=== PATIENT | female | born 1970 | race Caucasian/White ===

== ENCOUNTER 2018-02-24 18:19 | Emergency (ER) | payer SELFPAY ==
[2018-02-24 18:45] VITALS: BP 116/76
--- NOTE | 2018-02-24 20:17 | UC ---
Allegra Mendiola Gabriel, scribed for Tasha Hernandez MD on 02/24/18 at 2003 . General HPI - HPI Summary HPI Summary: This patient is a 47 year old F presenting to [facility] [place] accompanied by her roommate with a chief complaint of left ear pain since 02-20-18. The patient rates the pain 2/10 in severity. Symptoms aggravated by talking. Patient reports vomiting , congestion, fever, crusty formation in the ear, and cough. Patient denies sore throat, nausea, ROY, and SOB. Pt had a cold last week. Has vomited episodically, mostly as a result of swallowing drainage or because bouts of coughing lead to vomiting. - History of Current Complaint Chief Complaint: UCEar Stated Complaint: EAR ACHE Time Seen by Provider: 02/24/18 19:54 Hx Obtained From: Patient Hx Last Menstrual Period: 02/05/2017 Onset/Duration: Still Present Timing: Constant Onset Severity: Mild Current Severity: Mild Pain Intensity: 2 Pain Location at: ear Associated Signs & Symptoms: Positive: Other - vomiting, congestion, fever, crusty formation in the ear, cough, - Allergy/Home Medications Allergies/Adverse Reactions: Allergies Allergy/AdvReac Type Severity Reaction Status Date / Time codeine Allergy Vomiting Verified 02/24/18 18:45 Home Medications: Home Medications Pseudoephedrine HCl [Nasal Decongestant] 02/24/18 [History] PMH/Surg Hx/FS Hx/Imm Hx Previously Healthy: Yes - overweight Other History Of: Negative For: Anticoagulant Therapy - Surgical History Surgical History: None - Family History Known Family History: Positive: Unknown - paternal history unknown. Mother is living and healthy. 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 Lives: Dormitory/Roommates Alcohol Use: None Substance Use Type: None Smoking Status (MU): Never Smoked Tobacco Review of Systems Constitutional: Fever Skin: Negative Eyes: Negative ENT: Ear Ache, Sinus Congestion, Other - crusty formation in the left ear Respiratory: Cough Cardiovascular: Negative Gastrointestinal: Vomiting Genitourinary: Negative Motor: Negative Neurovascular: Negative Musculoskeletal: Negative Neurological: Negative Psychological: Negative Is Patient Immunocompromised?: No All Other Systems Reviewed And Are Negative: Yes Physical Exam Triage Information Reviewed: Yes Appearance: Ill-Appearing - looks unwell, harsh cough, some sweating. Vital Signs: Initial Vital Signs Temp 100.1 F 02/24/18 18:39 Pulse 105 02/24/18 18:39 Resp 18 02/24/18 18:39 BP 116/76 02/24/18 18:39 Pulse Ox 97 02/24/18 18:39 Eyes: Positive: Conjunctiva Clear ENT: Positive: Pharyngeal erythema, TM bulging - on left, red, dull with decreased light reflex. Some fluid in left ear canal, but cannot see a perforation. Neck: Positive: Supple, Nontender, No Lymphadenopathy Respiratory: Positive: Lungs clear, Normal breath sounds Musculoskeletal Exam: Normal Neurological: Positive: Alert, Muscle Tone Normal Psychological Exam: Normal Skin Exam: Normal Course/Dx - Course Course Of Treatment: Pt medications reviewed this visit. Allergies noted. Amoxicillin for left otitis media. Off work tomorrow. - Differential Dx - Multi-Symptom Provider Diagnoses: left otitis media. Discharge - Sign-Out/Discharge Documenting (check all that apply): Discharge - Discharge Plan Condition: Stable Disposition: HOME Prescriptions: Amoxicillin PO (*) [Amoxicillin 875 MG (*)] 875 mg PO BID #20 tab Patient Education Materials: Ear Infection (ED) Forms: *Work Release Referrals: No Primary Care Phys,NOPCP [Primary Care Provider] - Additional Instructions: Begin amoxicillin for treatment of left otitis media. You can use ibuprofen or acetaminophen for control of pain. Rest at home tomorrow, ensure high intake of fluids. - Billing Disposition and Condition Condition: STABLE Disposition: HOME The documentation as recorded by the Allegra valentine Gabriel accurately reflects the service I personally performed and the decisions made by me, Tasha Hernandez MD.
== END 2018-02-24 20:29 | disposition home or self-care (01) ==
LOC: UCEAST 18:19
DX: H66.92 Otitis media, unspecified, left ear (principal); R11.10 Vomiting, unspecified; R50.9 Fever, unspecified; R05 Cough; Z88.5 Allergy status to narcotic agent
CPT/HCPCS: 99202; G0463

== ENCOUNTER 2019-02-16 18:15 | Emergency (ER) | payer BC ==
[2019-02-16 18:44] VITALS: BP 126/85
--- NOTE | 2019-02-16 19:02 | UC ---
Respiratory Complaint HPI - HPI Summary HPI Summary: 48 y/o female presents to the urgent care c/o productive cough and chest congestion, fatigue for one week . Pt reports symptoms started as a common cold w/ nasal congestion and yellowish nasal discharge. She has taken OTC medication w/o any improvement. Cough is worse at night. Last night she had fever and chills and unable to sleep due to cough. Pt denies , SOB, wheezing, chest pain, abdominal pain, N/v/d. Pt w/ PMHX of asthma. - History of Current Complaint Chief Complaint: UCRespiratory Stated Complaint: CONGESTED Time Seen by Provider: 02/16/19 18:47 Hx Obtained From: Patient Hx Last Menstrual Period: 02/05/2017 ?: No Onset/Duration: Gradual Onset, Lasting Weeks - 1 week, Still Present, Worse Since - yesterday Timing: Intermittent Episodes Severity Initially: Mild Severity Currently: Moderate Pain Intensity: 3 Pain Scale Used: 0-10 Numeric Character: Cough: Productive, Sputum Description: - green Aggravating Factors: Recumbent Position Alleviating Factors: OTC Meds Associated Signs And Symptoms: Positive: Chills, URI, Nasal Congestion, Sinus Discomfort. Negative: Fever, Wheezing - Risk Factors Pulmonary Embolism Risk Factors: Negative Cardiac Risk Factors: Negative Pseudomonas Risk Factors: Negative Tuberculosis Risk Factors: Negative - Allergies/Home Medications Allergies/Adverse Reactions: Allergies Allergy/AdvReac Type Severity Reaction Status Date / Time codeine Allergy Vomiting Verified 02/16/19 18:45 Home Medications: Home Medications Dm/PE/Acetaminophen/Doxylamine [Vicks Dayquil/Nyquil Cold] 1 mis PO Q6H [History Confirmed 02/16/19] PMH/Surg Hx/FS Hx/Imm Hx Previously Healthy: Yes Respiratory History: Asthma Other History Of: Negative For: Anticoagulant Therapy - Surgical History Surgical History: Yes Surgery Procedure, Year, and Place: foot surgery, 2007 - Family History Known Family History: Negative: Seizure Disorder, Blood Disorder Family History: dyslipidemia - Social History Occupation: Employed Full-time Lives: With Family Alcohol Use: Rare Substance Use Type: None Smoking Status (MU): Never Smoked Tobacco Review of Systems All Other Systems Reviewed And Are Negative: Yes Constitutional: Positive: Chills, Fatigue Skin: Positive: Negative Eyes: Positive: Negative ENT: Positive: Nasal Discharge - yellowish, Sinus Congestion, Sinus Pain/ Tenderness Respiratory: Positive: Cough - productive w/ green sputum Cardiovascular: Positive: Negative Gastrointestinal: Positive: Negative Genitourinary: Positive: Negative Motor: Positive: Negative Neurovascular: Positive: Negative Musculoskeletal: Positive: Negative Neurological: Positive: Negative Psychological: Positive: Negative Is Patient Immunocompromised?: No Physical Exam - Summary Physical Exam Summary: Vital Signs Reviewed: Yes General: well developed, well nourished obese female sitting in the examining table w/o any apparent distress Eyes: Positive: Conjunctiva Clear - PERRLA, EOMI, fundi grossly normal ENT: Positive: Normal ENT inspection, Hearing grossly normal, Pharynx normal, Nasal congestion - edematous and erythematous nasal mucosa, Nasal drainage - yellowish drainage, TMs normal. Negative: Tonsillar swelling, Tonsillar exudate Neck: Positive: Supple, Nontender, No Lymphadenopathy Respiratory: no orthopnea or dyspnea. Able to speak in full sentences, no retractions or accessory muscle use, no tripod position, stridor, or head bobbing. Positive breath sounds bilaterally. Diffuse scattered rhonchi on b/L lungs, no wheezes, no crackles or rales. Cardiovascular: Positive: RRR, No Murmur, Pulses Normal, Brisk Capillary Refill Abdomen Description: Positive: Nontender, No Organomegaly, Soft. Negative: CVA Tenderness (R), CVA Tenderness (L) Bowel Sounds: Positive: Present Musculoskeletal Exam: Normal Musculoskeletal: Positive: Strength Intact, ROM Intact, No Edema Neurological Exam: Normal Psychological Exam: Normal Skin Exam: Normal Triage Information Reviewed: Yes Vital Signs: Initial Vital Signs Temp 98.9 F 02/16/19 18:38 Pulse 75 02/16/19 18:38 Resp 14 02/16/19 18:38 BP 126/85 02/16/19 18:38 Pulse Ox 98 02/16/19 18:38 Respiratory Course/Dx - Course Course Of Treatment: 48 y/o female presents to the urgent care c/o productive cough and chest congestion, fatigue for one week . Pt reports symptoms started as a common cold w/ nasal congestion nasal discharge. She has taken OTC medication w/o any improvement. Cough is worse at night. Last night she had chills and fever. Pt denies SOB, wheezing, chest pain, abdominal pain, N/v/d. Pt w/ Hx of Asthma. Hx obtained. Pt w/ diffuse scattered rhonchi on b/L lungs, no wheezes, no crackles or rales on examination. O2Sat:98%. Chest X-ray ordered to r/o pneumonia. Impression: Possible RT lower lobe pneumonia. Dr Bullock also agrees w/ Radiology reading. However Pt advised final radiology report will be done tomorrow morning. Pt will be tx for pneumonia Clinically. Pt Rx Doxyxycline PO , Albuterol inhlaer, and Tessalon tabs to alleviate symptoms. Plan of care was discussed with the patient.. All questions were answered at patient satisfaction. There were no further complaints or concerns. Pt understood and agreed w/ plan of care. Pt left the clinic hemodynamically stable, A&OX3 - Differential Dx/Diagnosis Differential Diagnosis/HQI/PQRI: Asthma, Bronchitis, Influenza, Laryngitis, Lower Resp Infection, Sinusitis, Other - pneumonia Provider Diagnosis: Community acquired pneumonia Discharge - Sign-Out/Discharge Documenting (check all that apply): Patient Departure - D/C home All imaging exams completed and their final reports reviewed: No - Discharge Plan Condition: Stable Disposition: HOME Prescriptions: Albuterol HFA INHALER* [Ventolin HFA Inhaler*] 1 - 2 puff INH Q6H PRN #1 mdi PRN Reason: Cough Benzonatate CAP* [Tessalon 100 MG CAP*] 100 mg PO TID PRN #21 cap PRN Reason: Cough DOXYcycline CAP(*) [DOXYcycline 100MG CAP(*)] 100 mg PO BID #20 cap Patient Education Materials: Community Acquired Pneumonia (ED) Forms: *Work Release Referrals: [facility] [place] [facility] REFERR[facility] [Outside] - 2 Days Additional Instructions: 1-Please take full course of antibiotic to avoid resistance. 2-Take Tessalon tabs PO and use the albuterol inhaler w/ the aerochamber to alleviate cough. Increase fluid intake, rest and eat well. 3- If symptoms do not improve or worsen or your develop SOB with fever and severe cough please go immediately to the ER further evaluation and treatment. 4-See your PCP in 2-3 days to check your symptoms are improving - Billing Disposition and Condition Condition: STABLE Disposition: Home
--- NOTE | 2019-02-17 08:38 | UC ---
- Progress Note Progress Note: chest xray report : IMPRESSION: No active cardiopulmonary disease is noted. Course/Dx - Diagnoses Provider Diagnoses: Community acquired pneumonia Discharge - Sign-Out/Discharge Documenting (check all that apply): Patient Departure All imaging exams completed and their final reports reviewed: Yes - Discharge Plan Condition: Stable Disposition: HOME Prescriptions: Albuterol HFA INHALER* [Ventolin HFA Inhaler*] 1 - 2 puff INH Q6H PRN #1 mdi PRN Reason: Cough Benzonatate CAP* [Tessalon 100 MG CAP*] 100 mg PO TID PRN #21 cap PRN Reason: Cough DOXYcycline CAP(*) [DOXYcycline 100MG CAP(*)] 100 mg PO BID #20 cap Patient Education Materials: Community Acquired Pneumonia (ED) Forms: *Work Release Referrals: [facility] [place] [facility] RE[facility]ERR[facility] [Outside] - 2 Days [facility], [MD - TESTING] - Additional Instructions: 1-Please take full course of antibiotic to avoid resistance. 2-Take Tessalon tabs PO and use the albuterol inhaler w/ the aerochamber to alleviate cough. Increase fluid intake, rest and eat well. 3- If symptoms do not improve or worsen or your develop SOB with fever and severe cough please go immediately to the ER further evaluation and treatment. 4-See your PCP in 2-3 days to check your symptoms are improving - Billing Disposition and Condition Condition: STABLE Disposition: Home
== END 2019-02-16 20:15 | disposition home or self-care (01) ==
LOC: UCEAST 18:15
DX: J18.9 Pneumonia, unspecified organism (principal); J45.909 Unspecified asthma, uncomplicated; Z88.5 Allergy status to narcotic agent
CPT/HCPCS: 71046; 99212; G0463